=== PATIENT | female | born 2000 | race Caucasian/White ===

== ENCOUNTER 2023-09-19 10:52 | Outpatient (RCR) | payer BC, SELFPAY ==
[2023-09-19 11:15] VITALS: BP 117/72
[2023-09-19] MEDS: NSS 1000 IV ×2 (11:18→12:53)
[2023-09-19 14:25] VITALS: BP 94/55
== END 2023-09-22 08:18 | disposition home or self-care (01) ==
LOC: OID 10:52
PROVIDERS: ATTENDING PHYSICIAN Internal Medicine; FAMILY PHYSICIAN Family Medicine
DX: G90.9 Disorder of the autonomic nervous system, unspecified (principal); G90.A Postural orthostatic tachycardia syndrome [POTS]
CPT/HCPCS: 96360; 96361

== ENCOUNTER 2023-10-08 13:19 | Outpatient (RCR) | payer BC, SELFPAY ==
[2023-10-08 13:20] VITALS: BP 108/61
[2023-10-08] MEDS: NSS 1000 IV ×2 (13:50→15:18)
--- NOTE | 2023-10-08 14:21 | OIDSOC ---
Was referred by office due to pts responses to eval. Called last week and left a message. Stopped by office today and spoke to pt in a room. She states that she has a good support of friends, and a therapist she sees regularly. Pt states her home
life is where stress/anxiety stems from. Offered my support and services, which at this time she states she doesn't need. I'm more than happy to assist if needed at another time. Melinda
== END 2023-10-28 23:59 | disposition home or self-care (01) ==
LOC: OID 13:19
PROVIDERS: ATTENDING PHYSICIAN Internal Medicine; FAMILY PHYSICIAN Family Medicine
DX: G90.9 Disorder of the autonomic nervous system, unspecified (principal); G90.A Postural orthostatic tachycardia syndrome [POTS]
CPT/HCPCS: 96360; 96361